=== PATIENT | male | born 1950 | race Caucasian/White ===

== ENCOUNTER 2022-11-08 07:32 | Day surgery (SDC) | payer MEDICARE, OTHER ==
[2022-11-08] MEDS ORDERED: Propofol 200 MG/20 ML SDV IV ONE (07:33)
[2022-11-08] MEDS ORDERED: Lidocaine 2% 5 ML SDV IV ONE (07:33)
[2022-11-08] MEDS ORDERED: Lactated Ringers 1,000 ML IV SCH (07:45)
[2022-11-08] MEDS ORDERED: Sodium Chloride 0.9% 10 ML Syringe FLUSH PRN (07:45)
[2022-11-08] MEDS ORDERED: Simethicone Drops 40 MG/0.6 ML 30 ML Bottle PO ONE (09:26)
[2022-11-08 10:53] VITALS: BP 148/82; PULSE 62
== END 2022-11-08 10:36 | disposition home or self-care (01) ==
LOC: FB.SDS 07:32
PROVIDERS: ATTEND Surgery
DX: Z12.11 Encounter for screening for malignant neoplasm of colon (principal); D12.8 Benign neoplasm of rectum; D12.0 Benign neoplasm of cecum; K57.30 Diverticulosis of large intestine without perforation or abscess without bleeding; K42.9 Umbilical hernia without obstruction or gangrene; E03.9 Hypothyroidism, unspecified; E66.01 Morbid (severe) obesity due to excess calories; E78.5 Hyperlipidemia, unspecified; Z79.899 Other long term (current) drug therapy; Z79.890 Hormone replacement therapy; Z68.39 Body mass index [BMI] 39.0-39.9, adult
CPT/HCPCS: 00811; 45385; 88305; A9270; J2704; J7120

== ENCOUNTER 2023-04-01 19:06 | Emergency (ER) | payer MEDICARE, OTHER ==
[2023-04-01] MEDS ORDERED: traMADol 50 MG Tab PO ONE (19:07)
[2023-04-01 19:25] VITALS: BP 129/78; PULSE 72
== END 2023-04-01 19:53 | disposition home or self-care (01) ==
LOC: FB.ED 19:06
DX: S52.531A Colles' fracture of right radius, initial encounter for closed fracture (principal); E03.9 Hypothyroidism, unspecified; E66.9 Obesity, unspecified; E78.00 Pure hypercholesterolemia, unspecified; Z68.36 Body mass index [BMI] 36.0-36.9, adult; Z79.899 Other long term (current) drug therapy; W19.XXXA Unspecified fall, initial encounter
CPT/HCPCS: 73090; 73110; 99283; A9270; 29125; 99282